=== PATIENT | female | born 1955 | race Caucasian/White ===

== ENCOUNTER 2016-12-21 05:22 | Day surgery (SDC) | payer BC, OTHER ==
[2016-12-17 16:07] VITALS: BMI 29.8
[2016-12-21] MEDS ORDERED: LIDOCAINE HCL/PF 2% SDV 5ML VIAL ONE (14:30)
[2016-12-21] MEDS ORDERED: MIDAZOLAM HCL 2 MG/2 ML SINGLE DOSE VIAL ONE (14:30)
[2016-12-21] MEDS ORDERED: DEXAMETHASONE SOD PHOSPHATE 4 MG/1 ML VIAL ONE (14:30)
[2016-12-21] MEDS ORDERED: SODIUM CHLORIDE 0.9% P/F 10 ML VIAL IJ ONE (14:31)
[2016-12-21] MEDS ORDERED: ceFAZolin SODIUM 1 GM VIAL ONE (14:31)
--- NOTE | 2016-12-21 14:35 | HP ---
History & Physical Update - History History: No Change - Physical Physical: No Change - Assessment Assessment: No Change - Plan Plan: No Change
[2016-12-21] MEDS ORDERED: ONDANSETRON 4 MG/2 ML VIAL IVPUSH PRN (14:44)
[2016-12-21] MEDS ORDERED: oxyCODONE HCL 5 MG TABLET PO PRN ×2 (14:44→16:16)
[2016-12-21] MEDS ORDERED: LACTATED RINGERS SOLUTION 1,000 ML IV SCH (14:45)
[2016-12-21] MEDS ORDERED: METRONIDAZOLE 500 MG PREMIXED 100 ML IVPB ONE (14:57)
[2016-12-21] MEDS ORDERED: METRONIDAZOLE 500 MG PREMIXED 500 MG/100 ML MG IVPB ONE (14:58)
[2016-12-21] MEDS ORDERED: ePHEDrine SULFATE 50 MG/1 ML AMPULE ONE (15:04)
[2016-12-21] MEDS ORDERED: DESFLURANE GAS 240 ML BOTTLE IH ONE (15:20)
[2016-12-21] MEDS ORDERED: LIDOCAINE HCL 2% (20ML MULTI-DOSE VIAL) NR ONE (15:20)
[2016-12-21] MEDS ORDERED: IBUPROFEN 800 MG/8 ML IJ IVPB PRN (16:16)
[2016-12-21] MEDS ORDERED: ONDANSETRON 4 MG/2 ML VIAL IVPB PRN (16:16)
[2016-12-21] MEDS ORDERED: IBUPROFEN 600 MG TABLET (FP) PO PRN (16:16)
[2016-12-21] MEDS ORDERED: ELECTROLYTE-148 SOLN 1,000 ML IV SCH (16:30)
--- NOTE | 2016-12-21 16:30 | OP ---
Operative Note - Note: Operative Date: 12/21/16 Pre-Operative Diagnosis: 61 yo with large endometrial polyp Operation: Exam under anesthesia, Hysteroscopy, polypectomy, dialation, curettage Findings: Uterus 6wks size, bilateral normal adnexa, 6cm endometrial polyp Post-Operative Diagnosis: Same as Pre-op Surgeon: Vickie Isaac Anesthesiologist/MEDIA COORDINATOR: Fredrick Berrios Anesthesia: MAC Estimated Blood Loss (mls): 50 Drains, Volume Out (mls): 100 Fluid Volume Replaced (mls): 1,000 Operative Report Dictated: Yes
[2016-12-21 17:32] VITALS: TEMP 97.5
[2016-12-21] MEDS ORDERED: ONDANSETRON 4 MG/2 ML VIAL ONE (17:37)
[2016-12-21] MEDS ORDERED: ONDANSETRON 4 MG/2 ML VIAL IVPB ONE (17:40)
[2016-12-21 19:15] VITALS: BP 150/91; PULSE 65
--- NOTE | 2016-12-22 05:58 | OP ---
DATE OF OPERATION: 12/21/2016 PREOPERATIVE DIAGNOSIS: A 61-year-old with large endometrial polyp. OPERATION: Exam under anesthesia, hysteroscopy, polypectomy, dilation and curettage. FINDINGS: Uterus 6 weeks' size, bilateral normal adnexae and 6-cm endometrial polyp. POSTOPERATIVE DIAGNOSIS: A 61-year-old with large endometrial polyp. SURGEON: Vickie Isaac MD ANESTHESIOLOGIST: Fredrick Berrios MD ANESTHESIA: MAC. ESTIMATED BLOOD LOSS: 50 mL. URINE OUTPUT: 100 mL. FLUID REPLACED: 1000 mL. DESCRIPTION OF THE OPERATIVE PROCEDURE: After assuring informed consent, patient was taken to the operating room when she underwent MAC anesthesia without difficulty. Sequential compression devices were placed and turned on. She was placed in dorsal lithotomy position using Alvin stirrups. She was examined with above-noted findings, then prepped and draped in the usual surgical fashion. Bladder was drained with 18-gauge red straight catheter. The Waggoner speculum was inserted into the vagina, and single-tooth tenaculum was used to grasp the anterior cervical lip. The endocervical canal was serially dilated to 5 mm using Rahman dilators up to 19-gauge. Hysteroscope was inserted without difficulty with above findings. Visualization was achieved using sterile saline as the distention medium. The hysteroscope was removed and sharp curettage was performed as well as polyp forceps were used to remove large quantity of polyp. Tissue was sent to Pathology. Hysteroscope was reinserted and revealed no evidence of perforation. All instruments were removed. Hemostasis was observed at the cervical site. Patient was repositioned into supine position, extubated, and taken to the recovery room in stable condition. The instrument and sponge count was correct x2. Kojo [id number]
--- NOTE | 2016-12-23 17:34 | PATH ---
Surgical Pathology Report Patient Name: RUCHI BROOKS [facility]. Rec. #: [id number] /Age/Gender: 1955 (Age: 61) / F Account: [id number] Location: [facility] SURGICAL Taken: 12/21/2016 Received: 12/22/2016 Reported: 12/23/2016 Physicians: Vickie Isaac M.D. Specimen(s) Received A: POLYP B: ENDOMETRIAL CURETTINGS C: FIBROID Clinical History Postmenopausal bleeding Final Diagnosis A. POLYP, POLYPECTOMY: FRAGMENTS OF ENDOMETRIAL POLYP. FRAGMENTS OF BENIGN SMOOTH MUSCLE. B. ENDOMETRIUM, CURETTAGE: FRAGMENTS OF ENDOMETRIAL POLYP. BACKGROUND SCANT FRAGMENTS OF ATROPHIC ENDOMETRIUM. SCANT FRAGMENTS OF BENIGN ENDOCERVICAL TISSUE. C. "FIBROD": FRAGMENTS OF ENDOMETRIAL POLYP. Electronically Signed Alexander Dumont M.D. Gross Description A. Received in formalin, labeled "polyp" is a 4.2 x 3.5 x 0.7 cm aggregate of multiple pink-dueñas, irregular to polypoid portions of soft tissue. The formalin is filtered and the specimen is entirely submitted in 4 cassettes. B. Received in formalin, labeled "endometrial curettings" is a 1.8 x 1.5 x 0.3 cm aggregate of dueñas-brown soft tissue fragments admixed with blood clot. The formalin is filtered and the specimen is entirely submitted in one cassette. C. Received in formalin, labeled "fibroid" is a 1 g, 2.5 x 1.8 x 0.3 cm dueñas, irregular portion of fibrous tissue, possibly consistent with a portion of fibroid. The specimen is serially sectioned and entirely submitted in 2 cassettes. 12/22/201612/22/2016
== END 2016-12-21 19:14 | disposition home or self-care (01) ==
LOC: JASU-SURG 05:22
PROVIDERS: ATTEND Obstetrics & Gynecology
PROC: 0UB98ZZ Excision of Uterus, Via Natural or Artificial Opening Endoscopic (ICD-10-PCS; principal; 2016-12-21 12:00)
PROC: 0UDB8ZZ Extraction of Endometrium, Via Natural or Artificial Opening Endoscopic (ICD-10-PCS; 2016-12-21 12:00)
DX: N84.0 Polyp of corpus uteri (principal)
CPT/HCPCS: 88305-TC; 94760